=== PATIENT | female | born 1995 | race African-American/Black ===

== ENCOUNTER 2019-06-17 17:09 | Emergency (ER) | payer OTHER ==
[~2019-06-17] VITALS: Ht 149.9 cm; Wt 74.3 kg
[~2019-06-17 17:09] MED LIST: ACET500C5 PO; NAPR-985 PO
[2019-06-17 17:14] VITALS: BP 125/85; PULSE 82; RESP 16; Ht 149.9 cm; Wt 74.3 kg
--- NOTE | 2019-06-17 17:58 | ERD ---
ER Documentation Chief Complaint Chief Complaint RLE pain x 3 days HPI 24-year-old female with no reported past medical or surgical history presents with complaint of right lower extremity pain over the past 3 days. Describes pain to the lateral aspect of left martin. She denies any recent injury or fall. Denies any insect bite or open wound to area. States pain began to worsen after her young son fell on affected area. She has ambulated without issue although with some mild pain. She denies pain at the cath, shortness of breath, dyspnea or any other symptoms. At time of evaluation patient take multiple steps in examination room without much discomfort. ROS All systems reviewed and are negative except as per history of present illness. Medications Home Meds Active Scripts Acetaminophen* (Tylophen*) 500 Mg Capsule, 1 CAP PO Q6H PRN for PAIN AND OR ELEVATED TEMP, #20 CAP Prov:NATE REAL PA-C 06/17/19 Naproxen* (Naprosyn*) 500 Mg Tablet, 500 MG PO BID PRN for PAIN AND/OR INFLAMMATION, #30 TAB Prov:NATE REAL PA-C 06/17/19 Allergies Allergies: Coded Allergies: No Known Allergy (Unverified , 06/17/19) PMhx/Soc Medical and Surgical Hx: pt denies Medical Hx, pt denies Surgical Hx Hx Alcohol Use: No Hx Substance Use: No Hx Tobacco Use: No Smoking Status: Never smoker FmHx Family History: No diabetes, No coronary disease, No other Physical Exam Vitals Vital Signs Date Temp Pulse Resp B/P (MAP) Pulse Ox O2 O2 Flow FiO2 Time Delivery Rate 06/17/19 98.3 82 16 125/85 100 17:14 (98) Physical Exam Const: No acute distress Head: Atraumatic Eyes: Normal Conjunctiva ENT: Normal External Ears, Nose and Mouth. Neck: Full range of motion. No meningismus. Resp: Clear to auscultation bilaterally Cardio: Regular rate and rhythm, no murmurs Abd: Soft, non tender, non distended. Normal bowel sounds Skin: No petechiae or rashes Back: No midline or flank tenderness Ext: Right lower extremity no cyanosis, erythema or edema, tenderness to palpation lateral aspect of right lower martin, no insect bite, no open wound, no tenderness at the calf, bilateral lower extremity symmetrical, 5 out of 5 strength throughout left lower extremity, SI LT throughout, distal pulses Neur: Awake and alert Psych: Normal Mood and Affect Procedures/MDM 24-year-old female presents with complaint of lower extremity martin pain. I have low suspicion for any acute process warranting further emergent work-up such as imaging, x-rays or ultrasound. I have low suspicion for acute DVT, acute cellulitis, deep space infection/underlying abscess. She likely has a contusion and would improve with symptomatic treatment. Her exam is completely reassuring with no signs of of injury to the area. Discharged with appropriate pain medications. Strict return precautions explained in detail. DISPOSITION PLAN: We discussed follow up with the patient's primary care doctor within 24 to 48 hours. Patient counseled regarding my diagnostic impression and care plan. Prior to discharge all questions answered. Pt agrees with treatment plan and understands strict return precautions. Precautionary instructions provided including instructions to return to the ER if not improving or for any worsening or changing symptoms or concerns. Disclaimer: Inadvertent spelling and grammatical errors are likely due to EHR/dictation software use and do not reflect on the overall quality of patient care. Also, please note that the electronic time recorded on this note does not necessarily reflect the actual time of the patient encounter. Departure Diagnosis: Primary Impression: Pain of right leg Condition: Stable Patient Instructions: Contusion, Lower Extremity Referrals: [facility] YOU HAVE RECEIVED A MEDICAL SCREENING EXAM AND THE RESULTS INDICATE THAT YOU DO NOT HAVE A CONDITION THAT REQUIRES URGENT TREATMENT IN THE EMERGENCY DEPARTMENT. FURTHER EVALUATION AND TREATMENT OF YOUR CONDITION CAN WAIT UNTIL YOU ARE SEEN IN YOUR DOCTORS OFFICE WITHIN THE NEXT 1-2 DAYS. IT IS YOUR RESPONSIBILITY TO MAKE AN APPOINTMENT FOR FOLOW-UP CARE. IF YOU HAVE A PRIMARY DOCTOR --you should call your primary doctor and schedule an appointment IF YOU DO NOT HAVE A PRIMARY DOCTOR YOU CAN CALL OUR PHYSICIAN REFERRAL HOTLINE AT IF YOU CAN NOT AFFORD TO SEE A PHYSICIAN YOU CAN CHOSE FROM THE FOLLOWING [facility] [address] [facility] [address] [facility] [address] [facility] [address] [facility] [address] [facility] [facility] [address] Additional Instructions: Call your primary care doctor TOMORROW for an appointment during the next 2-3 days.See the doctor sooner or return here if your condition worsens before your appointment time. NATE REAL PA-C Jun 17, 2019 17:58
== END 2019-06-17 18:27 | disposition home or self-care (01) ==
LOC: FTE 17:09
DX: M79.604 Pain in right leg (principal)
CPT/HCPCS: 99282